=== PATIENT | male | born 2000 | race Caucasian/White ===

== ENCOUNTER 2020-05-08 07:43 | Emergency (ER) | payer OTHER ==
[~2020-05-08] VITALS: Ht 170.2 cm; Wt 83.9 kg
[2020-05-08 07:46] VITALS: BP 140/77; Ht 170.2 cm; Wt 83.9 kg
== END 2020-05-08 08:26 | disposition home or self-care (01) ==
LOC: ED 07:43
DX: G93.41 Metabolic encephalopathy (principal); F10.129 Alcohol abuse with intoxication, unspecified
CPT/HCPCS: 82962